=== PATIENT | female | born 1950 | race Caucasian/White ===

== ENCOUNTER 2021-06-11 20:05 | Inpatient (IN) | payer MEDICARE, OTHER ==
[~2021-06-11] VITALS: Ht 165.1 cm; Wt 94.8 kg
[~2021-06-11 20:05] MED LIST: ALBUTEROL2.5 MG/3 M NEB; ATORVASTATIN CA40 MG PO; AUGMENTIN 500-1 EACH PO; AZITHROMYCIN250 MG PO; BACTROBAN OINT22 GM TOP; CALCIUM600 MG PO; CLOPIDOGREL75 MG PO; DEXAMETHASONE6 MG PO; IMDUR ER TAB 3030 MG PO; MIRALAX17 GM PO; MUCUS RELIEF600 MG PO; NITROGLYCERIN0.4 MG SC; PAIN RELIEF650 MG PO; PROAIR DIGIHAL90 MCG INH; PROTONIX40 MG PO; ZOFRAN ODT 4 MG4 MG PO
[2021-06-11 21:51] LABS: HEMOGLOBIN 10.3 gm/dl (12.3-15.3); RED BLOOD COUNT 4.03 M/UL (4.00-5.10); WHITE BLOOD COUNT 3.9 K/UL (4.5-11.0)
[2021-06-12] MEDS ORDERED: ALPRAZOLAM0.5 MG PO (08:05)
[2021-06-12] MEDS ORDERED: ECOTRIN81 MG PO (08:07)
[2021-06-12] MEDS ORDERED: AMLODIPINE BESY10 MG PO (08:07)
[2021-06-12] MEDS ORDERED: DOCUSATE SODIU100 MG PO (08:08)
[2021-06-12] MEDS ORDERED: BACLOFEN20 MG PO (08:08)
[2021-06-12] MEDS ORDERED: HYDRALAZINE HC100 MG PO (08:09)
[2021-06-12] MEDS ORDERED: ZESTRIL30 MG PO (08:10)
[2021-06-12] MEDS ORDERED: LEVOTHYROXINE125 MCG PO (08:10)
[2021-06-12] MEDS ORDERED: DRISDOL1250 MCG PO (10:42)
[2021-06-12] MEDS ORDERED: LORATADINE10 MG PO (10:43)
[2021-06-12] MEDS ORDERED: FLONASE ALLER15.8 ML (10:43)
[2021-06-12] MEDS ORDERED: OMEPRAZOLE40 MG PO (10:44)
[2021-06-12] MEDS ORDERED: CHLORTHALIDONE25 MG PO (10:44)
[2021-06-13 02:20] LABS: RED BLOOD COUNT 3.9 M/UL (4.00-5.10); WHITE BLOOD COUNT 3.5 K/UL (4.5-11.0)
[2021-06-14 07:33] LABS: HEMOGLOBIN 10.5 gm/dl (12.3-15.3); RED BLOOD COUNT 4.2 M/UL (4.00-5.10); WHITE BLOOD COUNT 3.9 K/UL (4.5-11.0)
[2021-06-15 07:53] LABS: HEMOGLOBIN 10.8 gm/dl (12.3-15.3); RED BLOOD COUNT 4.37 M/UL (4.00-5.10); WHITE BLOOD COUNT 4.3 K/UL (4.5-11.0)
--- NOTE | 2021-06-15 12:30 | NUR ---
PER FOUZIA DE ANDA, PT O2 SAT ON ROOM AIR 87-88%.
[2021-06-16 06:54] LABS: HEMOGLOBIN 10.8 gm/dl (12.3-15.3); RED BLOOD COUNT 4.28 M/UL (4.00-5.10)
[2021-06-16 06:58] LABS: WHITE BLOOD COUNT 6.1 K/UL (4.5-11.0)
[2021-06-16] MEDS ORDERED: LISINOPRIL40 MG PO (10:10)
[2021-06-16] MEDS ORDERED: AZITHROMYCIN250 MG PO (10:10)
[2021-06-16] MEDS ORDERED: LOPRESSOR 25 MG25 MG PO (10:10)
[2021-06-16] MEDS ORDERED: DEXAMETHASONE6 MG PO (10:13)
== END 2021-06-16 12:21 | disposition home or self-care (01) | DRG 177 ==
LOC: ER1 20:05 → MED SURG 4 06-12 02:39 → CDU 06-12 02:39 → MED SURG 4 06-12 06:54
PROVIDERS: Internal Medicine; Physician Assistant; ADMIT Internal Medicine
PROC: XW033E6 Introduction of Etesevimab Monoclonal Antibody into Peripheral Vein, Percutaneous Approach, New Technology Group 6 (ICD-10-PCS; 2021-06-11)
PROC: XW033F6 Introduction of Bamlanivimab Monoclonal Antibody into Peripheral Vein, Percutaneous Approach, New Technology Group 6 (ICD-10-PCS; 2021-06-11)
PROC: 8E0ZXY6 Isolation (ICD-10-PCS; principal; 2021-06-12)
PROC: 3E0333Z Introduction of Anti-inflammatory into Peripheral Vein, Percutaneous Approach (ICD-10-PCS; 2021-06-12)
PROC: XW033E5 Introduction of Remdesivir Anti-infective into Peripheral Vein, Percutaneous Approach, New Technology Group 5 (ICD-10-PCS; 2021-06-12)
DX: U07.1 COVID-19 (principal); J96.01 Acute respiratory failure with hypoxia; J12.82 Pneumonia due to coronavirus disease 2019; E87.1 Hypo-osmolality and hyponatremia; I69.352 Hemiplegia and hemiparesis following cerebral infarction affecting left dominant side; I25.10 Atherosclerotic heart disease of native coronary artery without angina pectoris; I12.9 Hypertensive chronic kidney disease with stage 1 through stage 4 chronic kidney disease, or unspecified chronic kidney disease; N18.30 Chronic kidney disease, stage 3 unspecified; K21.9 Gastro-esophageal reflux disease without esophagitis; E03.9 Hypothyroidism, unspecified; K59.00 Constipation, unspecified; E78.5 Hyperlipidemia, unspecified; D53.9 Nutritional anemia, unspecified; E66.9 Obesity, unspecified; T50.2X5A Adverse effect of carbonic-anhydrase inhibitors, benzothiadiazides and other diuretics, initial encounter; R53.81 Other malaise; I16.0 Hypertensive urgency; Z90.49 Acquired absence of other specified parts of digestive tract; Z98.49 Cataract extraction status, unspecified eye; Z95.1 Presence of aortocoronary bypass graft; Z90.89 Acquired absence of other organs; Z88.5 Allergy status to narcotic agent; Z88.8 Allergy status to other drugs, medicaments and biological substances; Z87.891 Personal history of nicotine dependence; Z68.34 Body mass index [BMI] 34.0-34.9, adult; Z79.899 Other long term (current) drug therapy; Z79.82 Long term (current) use of aspirin; Z23 Encounter for immunization
CPT/HCPCS: 36415; 36600; 71045; 71275; 80048; 80053; 82533; 82728; 82803; 83540; 83550; 83735; 83880; 83930; 83935; 84100; 84300; 84439; 84443; 84550; 85025; 85027; 85379; 86140; 93005; 94640; 94664; 94760; 96374; 96375; 97110; 97162; 97166; 97530; 99285; J0360; J0456; J0696; J1100; J1650; J7030; M0243; Q9967; U0002

== ENCOUNTER → 2021-06-22 | Outpatient (CLI) | payer OTHER ==
[~2021-06-22] MED LIST changes: +ALPRAZOLAM0.5 MG PO; +AMLODIPINE BESY10 MG PO; +BACLOFEN20 MG PO; +CHLORTHALIDONE25 MG PO; +DOCUSATE SODIU100 MG PO; +DRISDOL1250 MCG PO; +ECOTRIN81 MG PO; +FLONASE ALLER15.8 ML; +HYDRALAZINE HC100 MG PO; +LEVOTHYROXINE125 MCG PO; +LISINOPRIL40 MG PO; +LOPRESSOR 25 MG25 MG PO; +LORATADINE10 MG PO; +OMEPRAZOLE40 MG PO; +ZESTRIL30 MG PO
== END ==
LOC: EXRD 14:38
DX: U07.1 COVID-19 (principal); R91.8 Other nonspecific abnormal finding of lung field
CPT/HCPCS: 71046

== ENCOUNTER → 2021-08-19 | Outpatient (CLI) | payer MEDICARE, OTHER | LOC: EXRD 14:39 | DX: R06.02 Shortness of breath (principal); U09.9 Post COVID-19 condition, unspecified | CPT/HCPCS: 94060; 94729 ==

== ENCOUNTER → 2021-12-15 | Outpatient (CLI) | payer MEDICARE, OTHER | LOC: KOH-I 15:00 | DX: R93.89 Abnormal findings on diagnostic imaging of other specified body structures (principal); E27.9 Disorder of adrenal gland, unspecified | CPT/HCPCS: 71250 ==